=== PATIENT | male | born 1995 | race Hispanic/Latino ===

== ENCOUNTER 2019-09-09 01:47 | Emergency (ER) | payer OTHER ==
[2019-09-09] MEDS ORDERED: Ketorolac Tromethamine 60 MG/2 ML VIAL ONE (02:14)
--- NOTE | 2019-09-09 09:14 | RAD ---
LUMBAR SPINE 3 VIEWS: HISTORY: Injury, back pain. FINDINGS/IMPRESSION: No fracture or subluxation is identified. POS: [facility]
== END 2019-09-09 02:40 ==
LOC: NAV ERS 01:47
DX: M54.5 Low back pain (principal); I10 Essential (primary) hypertension; Z87.891 Personal history of nicotine dependence
CPT/HCPCS: 72100; 96372; J1885